=== PATIENT | female | born 1955 | race Caucasian/White ===

== ENCOUNTER → 2018-08-17 | Outpatient (CLI) | payer BC ==
[2018-08-17 13:47] LABS: International Normalized Ratio 1.73; Prothrombin Time Results 17.3 Sec (9.7-11.5)
== END | disposition home or self-care (01) ==
LOC: LAB EV 11:44 → LAB SHORT 11:44
PROVIDERS: Physician Assistant Surgical
DX: D68.59 Other primary thrombophilia (principal)
CPT/HCPCS: 85610

== ENCOUNTER 2018-10-10 10:38 | Inpatient (IN) | payer MEDICARE ==
[~2018-10-10] VITALS: Ht 167.6 cm; Wt 62.5 kg
[2018-10-10 11:13] LABS: BASOPHILS ABSOLUTE AUTO 0.01 K/mm3 (0.00-0.23); BASOPHILS PERCENT AUTO 0 % (0-2); EOSINOPHILS PERCENT AUTO 0 % (0-6); Hematocrit 35.2 % (33.0-51.0); Hemoglobin 11.8 g/dL (11.5-16.0); IMMATURE GRAN ABSOLUTE AUTO 0.02 K/mm3 (0.00-0.10); IMMATURE GRAN PERCENT AUTO 0 % (0-1); LYMPHOCYTES ABSOLUTE AUTO 1.04 K/mm3 (0.84-5.20); LYMPHOCYTES PERCENT AUTO 14 % (21-46); MONOCYTES ABSOLUTE AUTO 0.61 K/mm3 (0.16-1.47); MONOCYTES PERCENT AUTO 8 % (4-13); Mean Corpuscular HGB Conc 33.5 g/dL (31.5-36.5); Mean Corpuscular Volume 90 fL (80-100); Mean Platelet Volume 10.1 fL (9.1-12.4); NEUTROPHILS PERCENT AUTO 78 % (41-73); Platelet Count 104 K/mm3 (150-400); RDW Coefficient Variation 12.8 % (11.7-14.2); RDW Standard Deviation 42.5 fL (35.1-46.3); Red Blood Cell Count 3.93 M/mm3 (3.80-5.20); White Blood Cell Count 7.68 K/mm3 (4.00-11.30)
[2018-10-10] MEDS ORDERED: QUET300 PO (11:25)
[2018-10-10] MEDS ORDERED: Ropinirole HCl4 MG PO (11:25)
[2018-10-10] MEDS ORDERED: WARF5 PO (11:26)
[2018-10-10 11:28] LABS: Influenza A Negative (NEGATIVE); Influenza B Negative (NEGATIVE)
[2018-10-10 11:33] LABS: Albumin, Blood 2.8 g/dL (3.4-5.0); Albumin/Globulin Ratio 0.8 (0.8-1.8); Bilirubin, Total 0.7 mg/dL (0.1-1.0); Bun/Creatinine Ratio 22.7 (12.0-20.0); Creatinine, Blood 1.1 mg/dL (0.40-1.00); Globulin, Blood 3.7 g/dL (2.2-4.0); Total Protein, Blood 6.5 g/dL (6.4-8.2)
[2018-10-10] MEDS ORDERED: **INCOMPLETE MED REC (13:43)
[2018-10-10] MEDS ORDERED: WARF2.5 PO (13:59)
[2018-10-10] MEDS ORDERED: ESCI10 PO (14:00)
[2018-10-10 15:06] LABS: International Normalized Ratio 1.29; Prothrombin Time Results 13.4 Sec (9.7-11.5)
--- NOTE | 2018-10-10 15:20 | NUR ---
ASSUMED CARE: PT NEW ADMIT FROM ED. ARRIVES ON 5L O2 VIA NC, LUNG SOUNDS DIMINISHED IN BASES. HR IN 130S ON CARDIZEM GTT AT 15MG/HR. ALERT AND ORIENTED, COOPERATIVE. NO OTHER NEEDS AT THIS TIME. CALL LIGHT IN REACH
--- NOTE | 2018-10-10 15:50 | NUR ---
CALL TO DR BUSTAMANTE DUE TO PT'S BP IN SYSTOLIC 80S WITH HR IN 120S-130S REQUIRING 15MG/HR OF CARDIZEM. SEE NEW ORDERS.
--- NOTE | 2018-10-10 16:31 | NUR ---
DR BUSTAMANTE CHANGED CARDIZEM TO AMIODORONE BUT INSTRUCTED THIS NURSE TO GIVE LR BOLUS BEFORE SWITCHING TO AMIODORONE. PT'S HR CURRENTLY IN 70S WHILE RECIEVING LR BOLUS. TITRATING CARDIZEM DOWN PER INSTRUCTIONS BY CAR STORER. WILL DISCUSS FURTHER WITH DR BUSTAMANTE IF VITALS CONTINUE SUCH
--- NOTE | 2018-10-10 17:54 | NUR ---
DR BUSTAMANTE AWARE THAT PT'S HR IN 70S-90S WHEN RESTING WITH CARDIZEM OFF. DC'D AMIODORONE. WILL CONTINUE TO MONITOR
--- NOTE | 2018-10-10 19:15 | NUR ---
ASSUME CARE REPORT RECIEVED FROM OFF GOING RN ZA. MONITOR INTACT SHOWING A FLUTTER. HEART RATE 100'S-110'S. CO HEADACHE MEDICATED WITH TYLENOL 650MG PO. NING SOUNDS CLEAR HOWEVER TIGHT. WITH DECREASED SOUNDS IN THE BASES. RESPIRATIONS REGULAR AND EASY AT RESTWITH OCC HASH NON PRODUCTIVE COUGH. ABDOMEN SOFT WITH BOWEL SOUNDS FOUR QUADS.REPOSITIONS SELF IN BED RECIEVING UND PER RT. REMINDED NOT TO GET OUT OF BED BY SELF. STATES "I KNOW" SKIN WARM DRY INTACT NO EDEMA NOTED PEDAL PULSES PRESENT. CONTINUE TO MONITOR AND REPORT CHANGE IN PATIENT CONDITION.
--- NOTE | 2018-10-10 23:13 | NUR ---
HOSP NOTIFIED OF INCREASED HEART RATE OF 140'S ORDERS NOTED CARDIZEM GTT RESTARTED AT 5MG TITRATE TO HEART RATE OF 110-120. CONTINUE TO MONITOR AND REPORT CHANGE IN PATIENT CONDITION
[2018-10-11 04:29] LABS: International Normalized Ratio 2.42; Prothrombin Time Results 23.7 Sec (9.7-11.5)
[2018-10-11 04:45] LABS: Anion Gap 8 mmol/L (6-16); Blood Urea Nitrogen 14 mg/dL (8-24); Bun/Creatinine Ratio 20.8 (12.0-20.0); CO2, Blood 26 mmol/L (21-32); Calcium, Blood 7.9 mg/dL (8.5-10.1); Chloride, Blood 106 mmol/L (98-108); Creatinine, Blood 0.67 mg/dL (0.40-1.00); Glomerular Filtration Rate >60 (60-); Glucose, Blood 226 mg/dL (70-99); Potassium, Blood 4.1 mmol/L (3.5-5.5); Sodium, Blood 140 mmol/L (136-145)
--- NOTE | 2018-10-11 05:31 | NUR ---
TRANSFER NOTE/SHIFT SUMMARY: RESTS QUIETLY WHEN UNDISTURBED. MONITOR INTACT SHOWING A FLUTTER HEART RATE 100'S-120'S. LUNG SOUNDS DECREASED TIGHT. WITH O2 IN PLACE AT 4L/MIN RESPIRATIONS INCREASED WITH ACTIVITY. SPO2 94-97% ABDOMEN SOFT WITH BOWEL SOUNDS FOUR QUADS. REPOSITIONS SELF IN BED. GAIT STEADY TO BSC VOIDS CLEAR YELLOW URINE. BECOMES TACHYPNIC WITH EXCRERTION. SKIN WARM DRY INTACT NO EDEMA NOTED PEDAL PULSES PRESENT CARDIZEM GTT CONTINUES AT 15ML/HR CONTINUE TO MONITOR AND REPORT CHANGE IN PATIENT CONDITION. PENDING TRANSFER AND REPORT TO MATT BETANCOURT AND TX TO PCU 13
--- NOTE | 2018-10-11 06:20 | NUR ---
ASSUMED CARE- PT ARRIVES TO [facility] FROM ICU VIA WHEELCHAIR. PT IS AOX4. VITAL SIGNS STABLE. AMBULATES WITH STANDBY ASSIST TO BED. IV INFUSING LR @ 150/HR AND CARDIZEM @ 15 MG/HR. CURRENT HEART RATE IS IN THE 110'S. O2 SATS OF 96% ON 4L VIA NASAL CANNULA. O2 TITRATED TO 3L AND REMAINS AT 96% AT THIS TIME. PT SETTLED INTO BED AND ORIENTED TO ROOM AND CALL LIGHT SYSTEM. PT ENCOURGED TO CALL FOR ASSISTANCE WITH AMBULATION. WILL CONTINUE TO MONITOR AND REPORT TO ONCOMING SHIFT RN. BED IN LOW POSITION, CALL LIGHT IN REACH.
--- NOTE | 2018-10-11 06:24 | NUR ---
TRANSFER TO PCU 13PER WHEEL CHAIR WITH O2 IN PLACE AT 4L/MIN MIGEL WELL REPORT GIVEN TO MATT BETANCOURT
--- NOTE | 2018-10-11 07:32 | NUR ---
NURSING PCU DAYSHIFT: Assumed care of pt at approx 0700. A/O, pleasant, cooperative w/care. C/O 10/10 pain in back/chest/neck w/cough, denies any pain at rest. Skin is intact w/no breakdown. Ambulates w/o difficulty. Tele in place, aflutter w/HR 100-110, SBP 130's, no c/o cardiac related chest pain/pressure, no noted edema. L/S w/exp wheezes t/o and dim bases, dyspnea w/minimal exertion, O2 sat upper 90's on 3L NC, harsh/dry/CONSTRUCTION CHECKER cough. Abd mildly distended which pt states is normal, BT+, voiding w/o difficulty per pt. PIV x1, diltiazem gtt infusing at 15cc/hr, LR infusing at 150cc/hr. No s/s of acute distress at this time. Pt sitting up in bed drinking decaf coffee. RT at bedside for assessment and tx. Pt denies any current needs or questions regarding plan of care. Awaiting rounding from PMD, cont to monitor for any changes.
--- NOTE | 2018-10-11 10:07 | NUR ---
echocardiogram completed
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
--- NOTE | 2018-10-11 17:08 | NUR ---
NURSING PCU DAYSHIFT SUMMARY: No significant changes noted t/o the shift. VS stable, remains aflutter, heart rate improved to 80-110, diltiazem gtt infusing at 5cc/hr, started on PO metoprolol. Seen by PMD, new d/o received. RT notified of COPD education requirement, scheduled for tomorrow. Pt continues to experience dyspnea w/exertion though O2 sat remains stable. No s/s of acute distress at this time. Call light in reach and pt has been able to use w/o difficulty. Pt denies any questions/needs at this time, cont to monitor until rpt is given to NOC RN.
[2018-10-12 04:39] LABS: International Normalized Ratio 4.91
--- NOTE | 2018-10-12 05:10 | NUR ---
SHIFT SUMMARY PT ALERT AND ORIENTED. VS STABLE. HR SUSTAING IN THE 70'S AND CARDIZEM DC'D. O2 SATS HAVE REMAINED ABOVE 92% ON 4L NC. PT EDUCATED ON BREATHING AND RELAXATION TECHNIQUES. PT DYSPNEIC UPON AMBULATING TO THE BATHROOM AND DESATURATES TO THE LOW 80'S. BSC BROUGHT IN AND PT ABLE TO TRANSFER TO BEDSIDE COMMODE WITH MINIMAL SHORTNESS OF BREATH. LR INF PER EMAR. NO OTHER CHANGES SINCE INITIAL ASSESSMENT. WILL CONTINUE TO MONITOR AND REPORT TO ONCOMING RN. CALL LIGHT IN REACH.
--- NOTE | 2018-10-12 09:00 | NUR ---
NURSING PCU DAYSHIFT: Assumed care of pt at approx 0700. A/O, cooperative w/care, noted anxiety. Able to ambulate independently w/assistance needed only for line management. Denies any pain/discomfort at rest. Skin is fairly intact w/no breakdown noted. Tele in place, afib w/HR 100-115, no c/o CP/pressure, no noted edema. L/S w/fine crackles present in RLL, dyspnea w/minimal exertion, O2 sat low 90's on 5L NC, harsh dry/TELEVISION ANTENNA INSTALLER cough. Abd SNT, BT+, voiding w/o difficulty per pt. LR infusing at 150cc/hr as per d/o. No s/s of acute distress at this time. Pt changed to medical status w/tele, awaiting bed assignment. Pt denies any current needs or questions regarding plan of care. Provided education regarding importance of deep breathing exercises, verbalized understanding. Planning for COPD education today. Cont to monitor for any changes.
--- NOTE | 2018-10-12 09:08 | NUR ---
gIVEN PERMISSION TO WORK WITH THIS PATIENT AT 0900
--- NOTE | 2018-10-12 16:38 | NUR ---
NURSING PCU CARE TRANSFER SUMMARY: No acute changes noted t/o the shift. Pt continues to experience dyspnea w/minimal exertion, O2 sat declines to the low 80's, recovers w/deep breathing exercises, remains on 5L NC. Pt denies any questions/needs at this time. Pt care being xferred to peer RN. Cont to monitor until rpt is given.
--- NOTE | 2018-10-12 17:00 | NUR ---
T.O D'C IV FLUIDS PER
--- NOTE | 2018-10-12 17:14 | NUR ---
NOTIFIED PATIENT CONVERTED FROM A FLUTTER TO SR. STS TRANSFER MED STATIS KEEP TELE FOR TODAY.
[2018-10-12 17:28] LABS: PCO2 Arterial 46.9 mmHg (35-45); PO2 Arterial 57.3 mmHg (80-100); pH Blood Arterial 7.46 (7.35-7.45)
--- NOTE | 2018-10-12 18:38 | NUR ---
PATIENT ALERT AND ORIENTED. IV PATENT. AWARE WE NEED SPUTUM SAMPLE BUT STS NONPRODUCTIVE. PLEASANT. COOPERATIVE. TELE ON AND STILL NSR. STEADY GAIT IN ROOM. BED IN LOW POSITION. CALL LIGHT WITHIN REACH. WILL CONTINUE TO MONITOR.
[2018-10-13 04:31] LABS: Prothrombin Time Results 69.5 Sec (9.7-11.5)
[2018-10-13 04:33] LABS: International Normalized Ratio 7.91
--- NOTE | 2018-10-13 04:58 | NUR ---
SHIFT SUMMARY: PATIENT SLEPT WELL THIS SHIFT, NO ANXIETY NOTED, UP TO BSC X6 WITH NO ASSIST, USING CALL LIGHT APPROPRIATLY. PATIENT INR INCREASED TO 7.9, PHARMACY AND MD GARCÍA MADE AWARE.
--- NOTE | 2018-10-13 18:04 | NUR ---
Report was given to RN accepting the pt to room 209
--- NOTE | 2018-10-13 18:45 | NUR ---
recvd report from previous shift rachel cordova, pt sitting up in bed, a/0 x 4, pleasant/cooperative, respiratory treatment in process, bed rails up x 2, bed in lowest position, call light in reach
--- NOTE | 2018-10-13 19:57 | NUR ---
SHIFT SUMMARY: RECIEVED REPORT FROM OPAL MINER. PT ARRIVED TO ROOM AT 1820 VIA W/C ON 4L O2 NC. DENIES SOB/CP. SHE IS A&OX4. PT REPORTS PLANS FOR HER TO D/C HOME TOMORROW. SHE HAS A STEADY GAIT AND IS INDEPEND IN ROOM. REPORT GIVEN TO NEXT RN.
--- NOTE | 2018-10-14 05:54 | NUR ---
shift summary: vss, no acute changes, pt remained a/0 x 4, pleasant/cooperative. RT performed sleep O2 study this shift. pt appeared to be sleeping peacefully when rounded on after approx 2300, required standby assistance to the bathroom x 1. pt reported no SOB, no difficulty breathing, no n/v, no pain. Urine output >400 ml this shift. no BM this shift.
[2018-10-14 06:04] LABS: International Normalized Ratio 3.2; Prothrombin Time Results 30.5 Sec (9.7-11.5)
[2018-10-14] MEDS ORDERED: ACET325 PO (12:35)
[2018-10-14] MEDS ORDERED: AMOCLA500 PO (12:36)
[2018-10-14] MEDS ORDERED: ALBU3IS INH (12:36)
[2018-10-14] MEDS ORDERED: LIDO700A20 TOP (12:37)
[2018-10-14] MEDS ORDERED: Toprol Xl25 MG PO (12:38)
[2018-10-14] MEDS ORDERED: Prednisone20 MG PO (12:38)
[2018-10-14] MEDS ORDERED: ALBU90OI6 INH (12:39)
[2018-10-14] MEDS ORDERED: Budeprion Sr150 MG PO (12:39)
[2018-10-14] MEDS ORDERED: DULERA 100 MCG/13 GM PO (12:40)
[2018-10-14] MEDS ORDERED: Nicoderm Cq1 EAC1 TD (12:40)
--- NOTE | 2018-10-14 14:08 | NUR ---
DISCHARGE SUMMARY PT A&OX4, VSS, LEFT FLOOR VIA WC WITH RN TO GO HOME WITH ALL PERSONAL POSSESSIONS INCLUDING PORTABLE O2 FROM [facility], TI INSTRUCTIONS VIA CAB, [facility] THEN HOME. DC INSTRUCTIONS PROVIDED. PT REP UNDERSTANDING THOSE INSTRUCTIONS INCLUDING CALLING PCP TO MAKE 2 WK FU REGISTHANK MEET AT HOME WITH SUPPLIES. 2 IVS DC'D.
== END 2018-10-14 14:20 | disposition home or self-care (01) | DRG 871 ==
LOC: ER 10:38 → PCU 13:53 → ICUW 15:02 → PCU 15:10 → SURS 10-13 18:39
PROVIDERS: Emergency Medicine; ADMIT Internal Medicine
DX: A41.9 Sepsis, unspecified organism (principal); J96.01 Acute respiratory failure with hypoxia; J18.9 Pneumonia, unspecified organism; I82.0 Budd-Chiari syndrome; J44.1 Chronic obstructive pulmonary disease with (acute) exacerbation; I48.92 Unspecified atrial flutter; E87.6 Hypokalemia; I48.91 Unspecified atrial fibrillation; R65.20 Severe sepsis without septic shock; F31.9 Bipolar disorder, unspecified; Z66 Do not resuscitate; K21.9 Gastro-esophageal reflux disease without esophagitis; G25.81 Restless legs syndrome; K22.70 Barrett's esophagus without dysplasia; E78.5 Hyperlipidemia, unspecified; F17.210 Nicotine dependence, cigarettes, uncomplicated; Z88.5 Allergy status to narcotic agent; Z79.01 Long term (current) use of anticoagulants; Z79.899 Other long term (current) drug therapy
CPT/HCPCS: 36415; 36600; 71045; 80048; 80053; 82803; 83605; 84443; 84484; 85025; 85610; 87040; 87493; 87804; 93005; 93010; 93306; 94010; 94640; 94664; 94667; 94760; 94761; 94762; 96361; 96365; 96367; 96375; 96376; 97116; 97161; 98960; 99285-25; 99407; J0282; J1956; J2930; J3480; J7030; J7060; J7120

== ENCOUNTER 2019-08-26 18:39 | Emergency (ER) | payer MEDICARE ==
[~2019-08-26] VITALS: Ht 167.6 cm; Wt 61.7 kg
[~2019-08-26 18:39] MED LIST: **INCOMPLETE MED REC; ACET325 PO; ALBU3IS INH; ALBU90OI6 INH; AMOCLA500 PO; Budeprion Sr150 MG PO; DULERA 100 MCG/13 GM PO; ESCI10 PO; LIDO700A20 TOP; Nicoderm Cq1 EAC1 TD; Prednisone20 MG PO; QUET300 PO; Ropinirole HCl4 MG PO; Toprol Xl25 MG PO; WARF2.5 PO; WARF5 PO
[2019-08-26] MEDS ORDERED: ELIQUIS2.5 MG PO (19:00)
== END 2019-08-26 19:48 | disposition home or self-care (01) ==
LOC: ER 18:39
DX: S61.012A Laceration without foreign body of left thumb without damage to nail, initial encounter (principal); F31.9 Bipolar disorder, unspecified; J44.9 Chronic obstructive pulmonary disease, unspecified; K21.9 Gastro-esophageal reflux disease without esophagitis; E78.5 Hyperlipidemia, unspecified; Z88.5 Allergy status to narcotic agent; Z79.899 Other long term (current) drug therapy; Z79.01 Long term (current) use of anticoagulants; W26.0XXA Contact with knife, initial encounter
CPT/HCPCS: 12001; 99282-25

== ENCOUNTER 2019-09-05 12:44 | Emergency (ER) | payer MEDICARE ==
[~2019-09-05] VITALS: Ht 167.6 cm; Wt 59.9 kg
[~2019-09-05 12:44] MED LIST changes: +ELIQUIS2.5 MG PO
== END 2019-09-05 13:21 | disposition home or self-care (01) ==
LOC: ER 12:44
DX: S61.012D Laceration without foreign body of left thumb without damage to nail, subsequent encounter (principal); F31.9 Bipolar disorder, unspecified; K21.9 Gastro-esophageal reflux disease without esophagitis; E78.5 Hyperlipidemia, unspecified; F17.210 Nicotine dependence, cigarettes, uncomplicated; Z88.5 Allergy status to narcotic agent; Z79.899 Other long term (current) drug therapy; Z79.01 Long term (current) use of anticoagulants

== ENCOUNTER → 2020-07-01 | Outpatient (CLI) | payer MEDICARE ==
[2020-07-03 08:09] LABS: HPV 16 Negative (Negative); HPV 18 Negative (Negative); HPV OTHER HR TYPES Positive (Negative)
== END | disposition home or self-care (01) ==
LOC: LAB SHORT 10:30 → LAB 10:30
PROVIDERS: Nurse Practitioner Family
DX: Z12.4 Encounter for screening for malignant neoplasm of cervix (principal); Z11.51 Encounter for screening for human papillomavirus (HPV)
CPT/HCPCS: 87624; 87625; G0123

== ENCOUNTER 2021-02-17 02:40 | Emergency (ER) | payer MEDICARE ==
[~2021-02-17] VITALS: Ht 167.6 cm; Wt 59.0 kg
[2021-03-20] MEDS ORDERED: ALBU2.5V5 INH (12:57)
[2021-03-20] MEDS ORDERED: ACET500 PO (12:57)
[2021-03-20] MEDS ORDERED: BUPR150ER PO (12:58)
[2021-03-20] MEDS ORDERED: BUDESONIDE-FO10.2 G3 INH (12:58)
[2021-03-20] MEDS ORDERED: ELIQUIS5 M2 PO (12:58)
[2021-03-20] MEDS ORDERED: ALBU90OI INH (12:58)
[2021-03-20] MEDS ORDERED: QUETIAPINE FUM400 M2 PO (12:59)
[2021-03-20] MEDS ORDERED: TOPROL XL25 MG PO (12:59)
[2021-03-20] MEDS ORDERED: IPRAT-ALBUT 0.5-3 ML INH (12:59)
[2021-03-20] MEDS ORDERED: QUET100 PO (12:59)
[2021-03-20] MEDS ORDERED: ROPINIROLE HCL4 M2 PO (13:00)
== END 2021-02-17 06:15 | disposition home or self-care (01) ==
LOC: ER 02:40
DX: S81.011A Laceration without foreign body, right knee, initial encounter (principal); S50.12XA Contusion of left forearm, initial encounter; J44.9 Chronic obstructive pulmonary disease, unspecified; Z79.01 Long term (current) use of anticoagulants; Z79.899 Other long term (current) drug therapy; Z88.5 Allergy status to narcotic agent; W45.8XXA Other foreign body or object entering through skin, initial encounter
CPT/HCPCS: 12001; 99282-25

== ENCOUNTER → 2021-08-18 | Outpatient (CLI) | payer MEDICARE ==
[~2021-08-18] MED LIST changes: +ACET500 PO; +ALBU2.5V5 INH; +ALBU90OI INH; +BUDESONIDE-FO10.2 G3 INH; +BUPR150ER PO; +ELIQUIS5 M2 PO; +IPRAT-ALBUT 0.5-3 ML INH; +QUET100 PO; +QUETIAPINE FUM400 M2 PO; +ROPINIROLE HCL4 M2 PO; +TOPROL XL25 MG PO
[2021-08-21 14:11] LABS: HPV 16 Positive (Negative); HPV 18 Negative (Negative); HPV OTHER HR TYPES Negative (Negative)
== END | disposition home or self-care (01) ==
LOC: PLD 13:05 → LAB SHORT 13:05
PROVIDERS: Nurse Practitioner Family
DX: Z01.419 Encounter for gynecological examination (general) (routine) without abnormal findings (principal)
CPT/HCPCS: 87624; G0145

== ENCOUNTER 2023-03-06 14:13 | Emergency (ER) | payer OTHER, MEDICARE ==
[~2023-03-06] VITALS: Ht 167.6 cm; Wt 54.0 kg
[2023-03-06 14:19] VITALS: BP 138/96
== END 2023-03-06 14:40 | disposition home or self-care (01) ==
LOC: ER 14:13
DX: S81.812A Laceration without foreign body, left lower leg, initial encounter (principal); Z23 Encounter for immunization; W45.8XXA Other foreign body or object entering through skin, initial encounter; Y92.810 Car as the place of occurrence of the external cause; Z88.5 Allergy status to narcotic agent; Z79.51 Long term (current) use of inhaled steroids; Z79.01 Long term (current) use of anticoagulants; Z79.899 Other long term (current) drug therapy; J44.9 Chronic obstructive pulmonary disease, unspecified; K21.9 Gastro-esophageal reflux disease without esophagitis; E78.5 Hyperlipidemia, unspecified; F17.210 Nicotine dependence, cigarettes, uncomplicated
CPT/HCPCS: 90471; 90714; 99282

== ENCOUNTER → 2023-03-10 | Outpatient (CLI) | payer MEDICARE | END | disposition home or self-care (01) | LOC: PLD 13:10 → LAB SHORT 13:10 | DX: N71.9 Inflammatory disease of uterus, unspecified (principal); N95.0 Postmenopausal bleeding | CPT/HCPCS: 88305 ==

== ENCOUNTER 2025-03-25 12:11 | Emergency (ER) | payer MEDICARE ==
[~2025-03-25] VITALS: Ht 167.6 cm; Wt 49.9 kg
[2025-03-25 12:17] VITALS: BP 131/89
== END 2025-03-25 14:59 | disposition home or self-care (01) ==
LOC: ER 12:11
DX: I11.0 Hypertensive heart disease with heart failure (principal); I50.9 Heart failure, unspecified; J44.9 Chronic obstructive pulmonary disease, unspecified; K21.9 Gastro-esophageal reflux disease without esophagitis; E78.5 Hyperlipidemia, unspecified; K74.60 Unspecified cirrhosis of liver; F17.210 Nicotine dependence, cigarettes, uncomplicated; R09.89 Other specified symptoms and signs involving the circulatory and respiratory systems; Z88.5 Allergy status to narcotic agent; Z79.01 Long term (current) use of anticoagulants; Z79.899 Other long term (current) drug therapy
CPT/HCPCS: 71046; 80053; 83880; 84484; 85025; 99284-25

== ENCOUNTER → 2025-03-25 | Outpatient (CLI) | payer MEDICARE ==
[2025-03-25 10:17] LABS: BASOPHILS ABSOLUTE AUTO 0.06 K/mm3 (0.00-0.23); BASOPHILS PERCENT AUTO 1 % (0-2); EOSINOPHILS ABSOLUTE AUTO 0.70 K/mm3 (0.00-0.68); EOSINOPHILS PERCENT AUTO 8 % (0-6); Hematocrit 45.8 % (33.0-51.0); Hemoglobin 13.4 g/dL (11.5-16.0); IMMATURE GRAN ABSOLUTE AUTO 0.03 K/mm3 (0.00-0.10); IMMATURE GRAN PERCENT AUTO 0 % (0-1); LYMPHOCYTES ABSOLUTE AUTO 1.71 K/mm3 (0.84-5.20); LYMPHOCYTES PERCENT AUTO 19 % (21-46); MONOCYTES ABSOLUTE AUTO 0.88 K/mm3 (0.16-1.47); MONOCYTES PERCENT AUTO 10 % (4-13); Mean Corpuscular HGB Conc 29.3 g/dL (31.5-36.5); Mean Corpuscular Volume 86 fL (80-100); NEUTROPHILS ABSOLUTE AUTO 5.51 K/mm3 (1.96-9.15); NEUTROPHILS PERCENT AUTO 62 % (41-73); NRBC ABSOLUTE 0.00 K/mm3 (0.00-0.02); NRBC Auto 0.0 /100 WBC (0.0-0.2); Platelet Count 236 K/mm3 (150-400); RDW Coefficient Variation 17.2 % (11.7-14.2); RDW Standard Deviation 53.3 fL (35.1-46.3)
[2025-03-25 10:28] LABS: Alanine Aminotransfer (ALT/SGP 68.0 U/L (12-78); Albumin, Blood 3.5 g/dL (3.4-5.0); Albumin/Globulin Ratio 1.0 (0.8-1.8); Anion Gap 9.0 mmol/L (3-11); Aspartate Aminotrans (AST/SGOT 43.0 U/L (12-37); Bilirubin, Total 1.0 mg/dL (0.1-1.0); Blood Urea Nitrogen 39.0 mg/dL (8-24); CO2, Blood 37.0 mmol/L (21-32); Calcium, Blood 9.6 mg/dL (8.5-10.1); Chloride, Blood 100.0 mmol/L (98-108); Creatinine, Blood 1.27 mg/dL (0.40-1.00); Globulin, Blood 3.6 g/dL (2.2-4.0); Glucose, Blood 123.0 mg/dL (70-99); Potassium, Blood 4.8 mmol/L (3.5-5.5); Sodium, Blood 141.0 mmol/L (136-145); Total Protein, Blood 7.1 g/dL (6.4-8.2)
== END ==
LOC: LAB SHORT 10:08 → LAB 10:08
PROVIDERS: Family Medicine
DX: R09.89 Other specified symptoms and signs involving the circulatory and respiratory systems (principal); I50.9 Heart failure, unspecified
CPT/HCPCS: 80053; 83880; 84484; 85025

== ENCOUNTER 2025-04-03 22:07 | Emergency (ER) | payer MEDICARE ==
[~2025-04-03] VITALS: Ht 167.6 cm; Wt 51.7 kg
[2025-04-03 22:28] LABS: BASOPHILS ABSOLUTE AUTO 0.05 K/mm3 (0.00-0.23); BASOPHILS PERCENT AUTO 1 % (0-2); EOSINOPHILS ABSOLUTE AUTO 0.50 K/mm3 (0.00-0.68); EOSINOPHILS PERCENT AUTO 6 % (0-6); Hematocrit 38.3 % (33.0-51.0); Hemoglobin 11.4 g/dL (11.5-16.0); IMMATURE GRAN ABSOLUTE AUTO 0.02 K/mm3 (0.00-0.10); IMMATURE GRAN PERCENT AUTO 0 % (0-1); LYMPHOCYTES ABSOLUTE AUTO 1.87 K/mm3 (0.84-5.20); LYMPHOCYTES PERCENT AUTO 24 % (21-46); MONOCYTES ABSOLUTE AUTO 1.03 K/mm3 (0.16-1.47); MONOCYTES PERCENT AUTO 13 % (4-13); Mean Corpuscular HGB Conc 29.8 g/dL (31.5-36.5); Mean Corpuscular Volume 85 fL (80-100); NEUTROPHILS ABSOLUTE AUTO 4.40 K/mm3 (1.96-9.15); NEUTROPHILS PERCENT AUTO 56 % (41-73); NRBC ABSOLUTE 0.00 K/mm3 (0.00-0.02); NRBC Auto 0.0 /100 WBC (0.0-0.2); Platelet Count 234 K/mm3 (150-400); RDW Coefficient Variation 17.1 % (11.7-14.2); RDW Standard Deviation 52.6 fL (35.1-46.3)
[2025-04-03 23:04] LABS: Alanine Aminotransfer (ALT/SGP 41.0 U/L (12-78); Albumin, Blood 2.7 g/dL (3.4-5.0); Albumin/Globulin Ratio 0.8 (0.8-1.8); Anion Gap 7.0 mmol/L (3-11); Aspartate Aminotrans (AST/SGOT 44.0 U/L (12-37); Bilirubin, Total 0.6 mg/dL (0.1-1.0); Blood Urea Nitrogen 55.0 mg/dL (8-24); CO2, Blood 30.0 mmol/L (21-32); Calcium, Blood 9.6 mg/dL (8.5-10.1); Chloride, Blood 104.0 mmol/L (98-108); Creatinine, Blood 1.95 mg/dL (0.40-1.00); Globulin, Blood 3.3 g/dL (2.2-4.0); Glucose, Blood 79.0 mg/dL (70-99); Potassium, Blood 5.0 mmol/L (3.5-5.5); Sodium, Blood 136.0 mmol/L (136-145); Total Protein, Blood 6.0 g/dL (6.4-8.2)
[2025-04-04 00:45] VITALS: BP 125/77
== END 2025-04-04 08:08 | disposition home or self-care (01) ==
LOC: ER 22:07
PROVIDERS: Emergency Medicine
DX: R53.1 Weakness (principal); I89.0 Lymphedema, not elsewhere classified; R00.2 Palpitations; J44.9 Chronic obstructive pulmonary disease, unspecified; K21.9 Gastro-esophageal reflux disease without esophagitis; F31.9 Bipolar disorder, unspecified; F17.210 Nicotine dependence, cigarettes, uncomplicated; Z88.5 Allergy status to narcotic agent; Z79.01 Long term (current) use of anticoagulants; Z79.899 Other long term (current) drug therapy
CPT/HCPCS: 71046; 80053; 83880; 84484; 85025; 93005; 93010; 99285-25

== ENCOUNTER 2025-04-06 21:45 | Inpatient (IN) | payer MEDICARE ==
[~2025-04-06] VITALS: Ht 167.6 cm; Wt 53.9 kg
[2025-04-06] MEDS ORDERED: NS 1,000 ML IV SCH (22:15)
[2025-04-06 22:46] LABS: BASOPHILS ABSOLUTE AUTO 0.04 K/mm3 (0.00-0.23); BASOPHILS PERCENT AUTO 1 % (0-2); EOSINOPHILS ABSOLUTE AUTO 0.32 K/mm3 (0.00-0.68); EOSINOPHILS PERCENT AUTO 4 % (0-6); Hematocrit 35.8 % (33.0-51.0); Hemoglobin 10.5 g/dL (11.5-16.0); IMMATURE GRAN ABSOLUTE AUTO 0.02 K/mm3 (0.00-0.10); IMMATURE GRAN PERCENT AUTO 0 % (0-1); LYMPHOCYTES ABSOLUTE AUTO 1.40 K/mm3 (0.84-5.20); LYMPHOCYTES PERCENT AUTO 19 % (21-46); MONOCYTES ABSOLUTE AUTO 0.69 K/mm3 (0.16-1.47); MONOCYTES PERCENT AUTO 10 % (4-13); Mean Corpuscular HGB Conc 29.3 g/dL (31.5-36.5); Mean Corpuscular Volume 84 fL (80-100); NEUTROPHILS ABSOLUTE AUTO 4.76 K/mm3 (1.96-9.15); NEUTROPHILS PERCENT AUTO 66 % (41-73); NRBC ABSOLUTE 0.00 K/mm3 (0.00-0.02); NRBC Auto 0.0 /100 WBC (0.0-0.2); Platelet Count 208 K/mm3 (150-400); RDW Coefficient Variation 17.0 % (11.7-14.2); RDW Standard Deviation 52.4 fL (35.1-46.3)
[2025-04-06 23:08] LABS: Alanine Aminotransfer (ALT/SGP 38.0 U/L (12-78); Albumin, Blood 2.7 g/dL (3.4-5.0); Albumin/Globulin Ratio 0.9 (0.8-1.8); Anion Gap 5.0 mmol/L (3-11); Aspartate Aminotrans (AST/SGOT 25.0 U/L (12-37); Bilirubin, Total 0.4 mg/dL (0.1-1.0); Blood Urea Nitrogen 63.0 mg/dL (8-24); CO2, Blood 35.0 mmol/L (21-32); Calcium, Blood 8.2 mg/dL (8.5-10.1); Chloride, Blood 102.0 mmol/L (98-108); Creatinine, Blood 1.89 mg/dL (0.40-1.00); Globulin, Blood 3.0 g/dL (2.2-4.0); Glucose, Blood 105.0 mg/dL (70-99); Potassium, Blood 5.2 mmol/L (3.5-5.5); Sodium, Blood 137.0 mmol/L (136-145); Total Protein, Blood 5.7 g/dL (6.4-8.2)
[2025-04-07] VITALS (8 sets, daily range): BP systolic 94–129; BP diastolic 63–78
[2025-04-07 00:43] LABS: pH Blood Venous 7.35 (7.34-7.37)
[2025-04-07] MEDS ORDERED: NS 1,000 ML IV SCH (01:00)
[2025-04-07] MEDS ORDERED: Ipratropium/Albuterol SulF 2.5-0.5MG/3 ML Amp INH SCH (01:50)
[2025-04-07] MEDS ORDERED: Albuterol 2.5 MG/3 ML VIAL INH SCH (01:50)
[2025-04-07] MEDS ORDERED: MIRT15 PO (02:07)
[2025-04-07] MEDS ORDERED: POTA10T PO (02:07)
[2025-04-07] MEDS ORDERED: SOAANZ20 M2 PO (02:08)
[2025-04-07] MEDS ORDERED: MONT10T PO (02:09)
[2025-04-07 02:32] LABS: BASOPHILS ABSOLUTE AUTO 0.01 K/mm3 (0.00-0.23); BASOPHILS PERCENT AUTO 0 % (0-2); EOSINOPHILS ABSOLUTE AUTO 0.06 K/mm3 (0.00-0.68); EOSINOPHILS PERCENT AUTO 1 % (0-6); Hematocrit 39.3 % (33.0-51.0); Hemoglobin 11.4 g/dL (11.5-16.0); IMMATURE GRAN ABSOLUTE AUTO 0.02 K/mm3 (0.00-0.10); IMMATURE GRAN PERCENT AUTO 0 % (0-1); LYMPHOCYTES ABSOLUTE AUTO 0.70 K/mm3 (0.84-5.20); LYMPHOCYTES PERCENT AUTO 9 % (21-46); MONOCYTES ABSOLUTE AUTO 0.13 K/mm3 (0.16-1.47); MONOCYTES PERCENT AUTO 2 % (4-13); Mean Corpuscular HGB Conc 29.0 g/dL (31.5-36.5); Mean Corpuscular Volume 85 fL (80-100); NEUTROPHILS ABSOLUTE AUTO 6.49 K/mm3 (1.96-9.15); NEUTROPHILS PERCENT AUTO 88 % (41-73); NRBC ABSOLUTE 0.00 K/mm3 (0.00-0.02); NRBC Auto 0.0 /100 WBC (0.0-0.2); Platelet Count 220 K/mm3 (150-400); RDW Coefficient Variation 17.2 % (11.7-14.2); RDW Standard Deviation 52.6 fL (35.1-46.3)
--- NOTE | 2025-04-07 02:48 | NUR ---
PT ARRIVED TO RM 343 FROM ED AT 0152 VIA GURNEY. PT MOVED TO [facility] WITH A STANDBY ASSIST. PT SOB AND SATS WERE IN MID TO HIGH 80'S. PT PLACED ON 1L O2 VIA [place], SATS UP TO 96. PT STANDBY ASSIST TO BEDSIDE COMMODE WITH A URINE OUTPUT OF 100ML. I WILL UPDATE PRIMARY RN WHEN SHE RETURNS.
[2025-04-07] MEDS ORDERED: Albuterol Soln 2.5 MG/0.5 ML UD INH PRN (02:55)
[2025-04-07 03:02] LABS: Ferritin, Serum 19.0 ng/mL (8-252); Total Iron Binding Capacity 518.0 ug/dL (250-450)
[2025-04-07] MEDS ORDERED: Albuterol HFA200 ACT/6.7 GM INH INH PRN (03:25)
[2025-04-07 04:30] LABS: Alanine Aminotransfer (ALT/SGP 43.0 U/L (12-78); Albumin, Blood 2.8 g/dL (3.4-5.0); Albumin/Globulin Ratio 0.8 (0.8-1.8); Anion Gap 10.0 mmol/L (3-11); Aspartate Aminotrans (AST/SGOT 36.0 U/L (12-37); Bilirubin, Total 0.6 mg/dL (0.1-1.0); Blood Urea Nitrogen 61.0 mg/dL (8-24); CO2, Blood 30.0 mmol/L (21-32); Calcium, Blood 8.2 mg/dL (8.5-10.1); Chloride, Blood 102.0 mmol/L (98-108); Creatinine, Blood 1.87 mg/dL (0.40-1.00); Globulin, Blood 3.3 g/dL (2.2-4.0); Glucose, Blood 150.0 mg/dL (70-99); Potassium, Blood 5.8 mmol/L (3.5-5.5); Sodium, Blood 136.0 mmol/L (136-145); Total Protein, Blood 6.1 g/dL (6.4-8.2)
--- NOTE | 2025-04-07 05:09 | NUR ---
SHORTNESS OF BREATH. PT REPORTED EXPERIENCING SHORTNESS OF BREATH AT REST. RT NOTIFIED AND REQUESTED BREATHING TREATMENT FOR PT. RT STATED PT NEEDS TO BE ON MEDICATION FOR "DIURESIS" TO HELP BREATHING. PT GIVEN BREATHING TREATMENT BY RT. RT REQUESTED THIS RN TO CLARIFY WITH DOCTOR ABOUT DIURESIS. PT HAS BEEN HYPOTENSIVE AND RECEIVING FLUIDS. AFTER TREATMENT, PT REPORTED IMPROVEMENT OF SOB. CALL PLACED TO HOSPITALIST. NOTIFIED OF THE ABOVE AND SX OF SOB, WITH IMPROVEMENT POST TREATMENT. NO NEW ORDERS RECEIVED AND INSTRUCTED TO CONTINUE FLUIDS ORDERED.
--- NOTE | 2025-04-07 05:46 | NUR ---
SHIFT SUMMARY NOC. PT ADMIT FOR HYPOTENSION, PT A/O X4. PT VOIDING URINE, SBA-1 ASSIST TO BSC. SCDS IN PLACE TO BLE. PT ON TELEMETRY WITH NO REPORTED EVENTS. PT ON O2 VIA N/C. PT HAD PRN BREATHING TREATMENT WITH REPORTED RELIEF. PT RESTED WITH CALL LIGHT IN REACH.
[2025-04-07] MEDS ORDERED: Heparin Sodium,Porcine 5,000 UNIT/0.5 ML SDV SC SCH (09:00)
[2025-04-08 03:00] VITALS: BP 127/82
[2025-04-08 05:42] LABS: BASOPHILS ABSOLUTE AUTO 0.01 K/mm3 (0.00-0.23); BASOPHILS PERCENT AUTO 0 % (0-2); EOSINOPHILS ABSOLUTE AUTO 0.03 K/mm3 (0.00-0.68); EOSINOPHILS PERCENT AUTO 0 % (0-6); Hematocrit 37.4 % (33.0-51.0); Hemoglobin 11.0 g/dL (11.5-16.0); IMMATURE GRAN ABSOLUTE AUTO 0.05 K/mm3 (0.00-0.10); IMMATURE GRAN PERCENT AUTO 0 % (0-1); LYMPHOCYTES ABSOLUTE AUTO 1.40 K/mm3 (0.84-5.20); LYMPHOCYTES PERCENT AUTO 11 % (21-46); MONOCYTES ABSOLUTE AUTO 1.15 K/mm3 (0.16-1.47); MONOCYTES PERCENT AUTO 9 % (4-13); Mean Corpuscular HGB Conc 29.4 g/dL (31.5-36.5); Mean Corpuscular Volume 84 fL (80-100); NEUTROPHILS ABSOLUTE AUTO 10.40 K/mm3 (1.96-9.15); NEUTROPHILS PERCENT AUTO 80 % (41-73); NRBC ABSOLUTE 0.02 K/mm3 (0.00-0.02); NRBC Auto 0.2 /100 WBC (0.0-0.2); Platelet Count 261 K/mm3 (150-400); RDW Coefficient Variation 17.2 % (11.7-14.2); RDW Standard Deviation 52.1 fL (35.1-46.3)
[2025-04-08 06:13] LABS: Anion Gap 6.0 mmol/L (3-11); Blood Urea Nitrogen 59.0 mg/dL (8-24); CO2, Blood 34.0 mmol/L (21-32); Calcium, Blood 8.5 mg/dL (8.5-10.1); Chloride, Blood 102.0 mmol/L (98-108); Creatinine, Blood 1.4 mg/dL (0.40-1.00); Glucose, Blood 140.0 mg/dL (70-99); Potassium, Blood 4.7 mmol/L (3.5-5.5); Sodium, Blood 137.0 mmol/L (136-145)
--- NOTE | 2025-04-08 06:42 | NUR ---
Shift Summary AOx4, high anxiety noted. Slept off/on throughout the night. Patient did not have any bm's this shift but did have multiple clear yellow urine. Patient noted to have normotensive bp's to R arm but hypotensive/soft bp's to L arm. Pleasant, a little forgetful, but highly anxious. Appetite is good and has been requesting chocolate ensure, milk on ice, and ct crackers. Independent to bedside commode. Patient is stressed about not being heard by her tobacco stripper who prescribed the diuretics to help remove some fluids. Patient believes the diuretic meds are reacting with her liver in a negative way. Spiritual Consult placed d/t spiritual distress. Daughter lives in another state. Patient placed on iso to r/o c-diff from multiple diarrhea during day shift. SCD's on. Tele: SR [id number].
[2025-04-08 07:55] VITALS: BP 104/82
[2025-04-08 11:31] VITALS: BP 125/74
[2025-04-08] MEDS ORDERED: Flonase 0.05% N16 GM (12:01)
[2025-04-08 15:30] VITALS: BP 119/77
[2025-04-08 16:15] VITALS: BP 112/72
[2025-04-08] MEDS ORDERED: Furosemide 10 MG / ML 2ML Vial IV ONE (17:00)
--- NOTE | 2025-04-08 17:57 | NUR ---
DAY SUMMARY A&OX4, VSS, ONE C/O CP THIS SHIFT (1624)-NO CHANGES ON TELE ([id number]), REPORTS SHE FEELS "PRESSURE FROM ABD", PLACED ON 2L O2, PAIN RESOLVED W/IN ABOUT 20 MINS. NOTIFIED PROVIDER, NEW ORDERS REC (LASIX & STRICT I'S AND O'S), PT DENIES CP AT THIS TIME, IS DANGLING AT BEDSIDE EATING DINNER AT THIS TIME, CALL LIGHT IN REACH, WILL CONT TO MONITOR UNTIL REPORT GIVEN TO ONCOMING NURSE.
[2025-04-08 19:25] VITALS: BP 109/69
[2025-04-09] VITALS (11 sets, daily range): BP systolic 68–140; BP diastolic 54–109
[2025-04-09 06:04] LABS: BASOPHILS ABSOLUTE AUTO 0.06 K/mm3 (0.00-0.23); BASOPHILS PERCENT AUTO 1 % (0-2); EOSINOPHILS ABSOLUTE AUTO 0.42 K/mm3 (0.00-0.68); EOSINOPHILS PERCENT AUTO 4 % (0-6); Hematocrit 38.1 % (33.0-51.0); Hemoglobin 11.1 g/dL (11.5-16.0); IMMATURE GRAN ABSOLUTE AUTO 0.03 K/mm3 (0.00-0.10); IMMATURE GRAN PERCENT AUTO 0 % (0-1); LYMPHOCYTES ABSOLUTE AUTO 1.82 K/mm3 (0.84-5.20); LYMPHOCYTES PERCENT AUTO 16 % (21-46); MONOCYTES ABSOLUTE AUTO 1.47 K/mm3 (0.16-1.47); MONOCYTES PERCENT AUTO 13 % (4-13); Mean Corpuscular HGB Conc 29.1 g/dL (31.5-36.5); Mean Corpuscular Volume 85 fL (80-100); NEUTROPHILS ABSOLUTE AUTO 7.33 K/mm3 (1.96-9.15); NEUTROPHILS PERCENT AUTO 66 % (41-73); NRBC ABSOLUTE 0.00 K/mm3 (0.00-0.02); NRBC Auto 0.0 /100 WBC (0.0-0.2); Platelet Count 216 K/mm3 (150-400); RDW Coefficient Variation 17.2 % (11.7-14.2); RDW Standard Deviation 53.0 fL (35.1-46.3)
--- NOTE | 2025-04-09 06:07 | NUR ---
SHIFT SUMMARY PATIENT IS ALERT AND ORIENTED. PATIENT HAS HAD NO ACUTE EVENTS THIS SHIFT. VITAL SIGNS REVIEWED. PATIENT HAS HAD NO COMPLAINTS OF SOB, NAUSEA, VOMITTING OR PAIN THIS SHIFT. PATIENT HAS BEEN ON 2L NC THIS SHIFT FOR COMFORT. PATIENT HAS BEEN IND TO BSC THIS SHIFT. BED IN LOCKED AND LOWEST POSITION. CALL LIGHT IN PLACE.
[2025-04-09 06:36] LABS: Alanine Aminotransfer (ALT/SGP 35.0 U/L (12-78); Albumin, Blood 2.6 g/dL (3.4-5.0); Albumin/Globulin Ratio 0.9 (0.8-1.8); Anion Gap 4.0 mmol/L (3-11); Aspartate Aminotrans (AST/SGOT 26.0 U/L (12-37); Bilirubin, Total 0.6 mg/dL (0.1-1.0); Blood Urea Nitrogen 48.0 mg/dL (8-24); CO2, Blood 36.0 mmol/L (21-32); Calcium, Blood 8.3 mg/dL (8.5-10.1); Chloride, Blood 104.0 mmol/L (98-108); Creatinine, Blood 0.85 mg/dL (0.40-1.00); Globulin, Blood 3.0 g/dL (2.2-4.0); Glucose, Blood 68.0 mg/dL (70-99); Potassium, Blood 3.8 mmol/L (3.5-5.5); Sodium, Blood 140.0 mmol/L (136-145); Total Protein, Blood 5.6 g/dL (6.4-8.2)
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
--- NOTE | 2025-04-09 17:30 | NUR ---
NOTE PT AWAKE AND ALERT. TALKED WITH PT SISTER/POA. PT BLE EDEAM STABLE. ABD ROUND, FIRM. LETS DARK RED/PURPLE WHEN DEPENDNET. PT HAS TAKEDN HER SCD SLEAVES AND PLACED THEM AROUND HER THIGHS. SHE REFUSES TO PUT THEM ON HER CALVES. VSS. VOIDING. CARE ONGOING.
[2025-04-09] MEDS ORDERED: HYDROmorphone HCl/Pf 1MG SYR IV STA (22:29)
[2025-04-09 22:55] LABS: Magnesium, Blood 1.7 mg/dL (1.6-2.4)
[2025-04-09 22:56] LABS: Alanine Aminotransfer (ALT/SGP 39.0 U/L (12-78); Albumin, Blood 2.8 g/dL (3.4-5.0); Albumin/Globulin Ratio 0.8 (0.8-1.8); Anion Gap 5.0 mmol/L (3-11); Aspartate Aminotrans (AST/SGOT 32.0 U/L (12-37); Bilirubin, Total 0.6 mg/dL (0.1-1.0); Blood Urea Nitrogen 40.0 mg/dL (8-24); CO2, Blood 39.0 mmol/L (21-32); Calcium, Blood 8.3 mg/dL (8.5-10.1); Chloride, Blood 101.0 mmol/L (98-108); Creatinine, Blood 0.99 mg/dL (0.40-1.00); Globulin, Blood 3.6 g/dL (2.2-4.0); Glucose, Blood 104.0 mg/dL (70-99); Potassium, Blood 4.6 mmol/L (3.5-5.5); Sodium, Blood 140.0 mmol/L (136-145); Total Protein, Blood 6.4 g/dL (6.4-8.2)
[2025-04-09] MEDS ORDERED: HYDROmorphone HCl/Pf 1MG SYR IV PRN (23:00)
[2025-04-09] MEDS ORDERED: Amiodarone HCl 150 MG in NS 100 ML IV ONE (23:30)
--- NOTE | 2025-04-09 23:40 | NUR ---
WAS CALLED TO ROOM 343 SECONDARY TO PT HAVING UP TO BATHROOM TO VOID HEART RATE INCREASED TO 200 + PT CURRENTLY BACK IN BED. ASKED PRIMARY NURSE TO CALL HOSPITALIST - DR LARA WHO COMES TO ROOM. EKG DONE. PT COMPLAINS OF CHEST PAIN AND IS MEDICATED WITH [address] LARA. PT STATES THAT THIS WAS VERY AFFECTIVE. EKG REVEALS PROBABLE A-FLUTTER. SECONDARY EKG PERFORMED WITH DR LARA SHOWN. CHEST X RAY DONE. MD REQUESTS PT TO BE TRANSFERRED TO PCU. CHARGE NURSE AND ACCEPTING RN FROM PCU COMES TO ROOM TO ASSIST. DID CALL ICU CHARGE NURSE TO COME TO ROOM WELL TO INCREASE CRITICAL NURSE ASSESSMENT. PT'S BLOOD PRESSURES HYPOTENSIVE WITH SYSTOLIC IN 70'S. PT DOES NOT ENDORSE DIZZYNESS. PER DR LARA, 300 ML BOLUS INITIATED. ASIA KELLY FROM PCU STARTS ADDITIONAL 18 GAUGE IN R AC TO HAVE BETTER ACCESS FOR BOLUS. PT'S BLOOD PRESSURES REMAIN LOW. DECISION MADE TO TRANSFER PT TO ICU INSTEAD. PRIMARY RN NIKI PROACTIVE IN ASSESSMENTS AND TREATMENTS. ACCOMPANIES PT TO ICU.
[2025-04-09] MEDS ORDERED: Amiodarone HCl 450 MG in NS 250 ML IV SCH (23:50)
[2025-04-10] VITALS (24 sets, daily range): BP systolic 16–163; BP diastolic 57–85
--- NOTE | 2025-04-10 00:01 | NUR ---
SHIFT SUMMARY CALLED TO PT ROOM D/T PT HEART RATE JUMPED TO 210'S. EYES ON PT, SHE HAD BEEN UP TO BATHROOM AND HAD BENT DOWN TO TURN OFF SCD ALARM. THEN FELT HEART RACING PER PT. CONTACTED ARCHITECTURAL TECHNICIAN THOMAS. CHECKED VITALS, PT HAD SBP IN 70'S. HOSPITALIST CALLED. DR. LARA IN ROOM AT BEDSIDE. STAT EKG, CHEST XRAY, LABS, AND PAIN MEDICATION ORDERED. EKG SHOWED POSSIBLE AFLUTTER. PT TO BE TRANSFERRED TO PCU. VISUAL COORDINATORASIA PRIETO AND PCU CHARGE JOSEPH AT BEDSIDE. ASIA PRIETO INSERTED 18G IV INTO RAC FOR FLUID BOLUS. ARCHITECTURAL TECHNICIAN THOMAS CALLED ICU ARCHITECTURAL TECHNICIAN CARLA FOR FURTHER EVALUATION. PT HAD 1MG DILAUDED AND 300ML NS BOLUS, WITH NO IMPROVEMENT TO BP. DURING BEDSIDE EVALUATION, PT HEART RATE CONTINUING TO SPIKE INTO 180'S +. ICU ARCHITECTURAL TECHNICIAN DETERMINED PT NEEDED TO BE TRANSFERRED TO ICU. PT ESCORTED TO ICU BY ICU ARCHITECTURAL TECHNICIAN AND THIS RN.
[2025-04-10] MEDS ORDERED: Furosemide 10 MG / ML 2ML Vial IV SCH (01:00)
--- NOTE | 2025-04-10 01:12 | NUR ---
TRANSITION OF CARE Received pt to unit approximately 2315. Bedside report w/ nurse transferring care. Pt drowsy but arousable and oriented, Irregular HR ranging from 170s-200, pt denies pain, endorses shortness of breath. Wet, coarse crackles throughout. MD made aware of pts arrival and arrived to bedside with new orders per eMAR. Distended bladder noted, hurley placed per MD. Amio bolus and gtt started. HR improved. Sustaining in 140s - 150s currently. Per MD call if pt has consistant SBP <90.
[2025-04-10 02:42] LABS: BASOPHILS ABSOLUTE AUTO 0.07 K/mm3 (0.00-0.23); BASOPHILS PERCENT AUTO 1 % (0-2); EOSINOPHILS ABSOLUTE AUTO 0.46 K/mm3 (0.00-0.68); EOSINOPHILS PERCENT AUTO 3 % (0-6); Hematocrit 41.9 % (33.0-51.0); Hemoglobin 12.0 g/dL (11.5-16.0); IMMATURE GRAN ABSOLUTE AUTO 0.04 K/mm3 (0.00-0.10); IMMATURE GRAN PERCENT AUTO 0 % (0-1); LYMPHOCYTES ABSOLUTE AUTO 1.54 K/mm3 (0.84-5.20); LYMPHOCYTES PERCENT AUTO 11 % (21-46); MONOCYTES ABSOLUTE AUTO 1.74 K/mm3 (0.16-1.47); MONOCYTES PERCENT AUTO 13 % (4-13); Mean Corpuscular HGB Conc 28.6 g/dL (31.5-36.5); Mean Corpuscular Volume 88 fL (80-100); NEUTROPHILS ABSOLUTE AUTO 9.93 K/mm3 (1.96-9.15); NEUTROPHILS PERCENT AUTO 72 % (41-73); NRBC ABSOLUTE 0.00 K/mm3 (0.00-0.02); NRBC Auto 0.0 /100 WBC (0.0-0.2); Platelet Count 222 K/mm3 (150-400); RDW Coefficient Variation 17.4 % (11.7-14.2); RDW Standard Deviation 55.7 fL (35.1-46.3)
[2025-04-10 02:55] LABS: Anion Gap 3.0 mmol/L (3-11); Blood Urea Nitrogen 35.0 mg/dL (8-24); CO2, Blood 39.0 mmol/L (21-32); Calcium, Blood 8.1 mg/dL (8.5-10.1); Chloride, Blood 102.0 mmol/L (98-108); Creatinine, Blood 1.07 mg/dL (0.40-1.00); Glucose, Blood 117.0 mg/dL (70-99); Potassium, Blood 4.4 mmol/L (3.5-5.5); Sodium, Blood 140.0 mmol/L (136-145)
--- NOTE | 2025-04-10 05:54 | NUR ---
SHIFT SUMMARY PT remains on Amio gtt at 33 ml/hr per eMAR. BiPAP placed IP/EP:08/04 35% RR:12 PT tolerating without complaint. hypotension and arrhythmia resolved. Patient converted to NSR at approx. 0255 and has maintained a HR in the 60-70s. Much improved, drowsy but arousable and oriented. Pleasant and cooperative.
--- NOTE | 2025-04-10 07:21 | NUR ---
ASSUMPTION OF CARE: REPORT FROM CAMRYN BETANCOURT TO ASSUME CARE OF PT. PT RESTING IN BED AND WAKES UP FOR BEDSIDE REPORT. REMAINS ON BIPAP. AMIO GTT CHANGED TO 16.7. VSS. NOT IN ANY DISTRESS AT THIS TIME.
[2025-04-10] MEDS ORDERED: Albuterol 2.5 MG/3 ML VIAL INH PRN (10:20)
--- NOTE | 2025-04-10 13:50 | NUR ---
UPDATE: THIS RN AT BEDSIDE TO GIVE PT LUNCH. PTTOOK ONE BITE OF HER FOOD AND BEGAN TO COUGH. PT TOOK A DRINK OF WATER TO HELP CLEAR FOOD. AFTER A FEW MINUTES, COUGHING SLOWED DOWN PT TOOK ANOTHER DRINK OF WATER AND BEGAN COUGHING AGAIN. THIS RN TOOK ALL FOOD AND FLUIDS FROM PT AND PROVIDED PT WITH A MOUTH SWABS. PT WAS EDUCATED ABOUT THE CONCERN FOR FOOD ASPIRATIONS AND THAT SHE WILL BE NPO UNTIL SPEECH EVAL. PT UNDERSTANDS AND IS AGREEABLE TO PLAN. PT NOT IN ANY RESPIRATORY DISTRESS AT THIS TIME AND HAS CLEARED AIRWAY. O2 SATS 95% ON 3L NC.
--- NOTE | 2025-04-10 15:58 | NUR ---
Pt. is awake and sitting in a chair. Facilitated an update as this Pt. had been on the Med floor the previous day. Pt. is pleasant and speaks of concerns at home with her family. Listen with empathy and a calming presence. Through theraputic listening the pt. displayed evidence of confidence with an action plan. Pt. verbalized gratitude for the spiritual care visit.
[2025-04-10] MEDS ORDERED: Furosemide 10 MG / ML 2ML Vial IV STA (16:00)
--- NOTE | 2025-04-10 17:37 | NUR ---
SHIFT SUMMARY/ TRANSFER TO PCU 13: PT A&OX4 FOLLOWS COMMANDS AND ANSWERS QUESTIONS APPROPRIATELY. THERE HAVE BEEN NO ACUTE NEURO CHANGES THIS SHIFT. PT HAS BEEN OFF OF BIPAP MOST OF THE DAY AND HAS BEEN TITRATED TO 3L NC. HAS REMAINED FREE OF ANY CP OR PRESSURE. CONTINUES ON AMIO DRIP. HAS HAD OCCASIONAL SOB WITH TIGHTNESS THAT SHE STATES FEELS LIKE HER LUNGS. ROJAS REMAINS IN PLACE AND HAS BEEN DRAINING CLEAR YELLOW URINE. HAS NOT HAD A BOWEL MOVEMENT TODAY. PT WAS TRANSFERED TO PCU 13. REPORT WAS CALLED TO SUNG Farrell RN. PTS BELONGINGS WERE COLLECTED AND TAKEN WITH PT. SUNG Farrell RN TO ASSUME CARE OF PT.
--- NOTE | 2025-04-10 18:23 | NUR ---
PT TRANSFERED TO PCU 13 FROM ICU 08. REPORT RECIEVED FROM GIAL Ga RN. THE PT TX'D VIA RECLINER AND IS A 1P ASSIST. SHE TRANSFERED TO U RECLINER AND IS SITTING UP PLAYING ON HER PHONE. THE PT IS ON AN AMIO GTT AT 16.7 DURING THE TRANSFER. MEDICATION INFUSING IN RAC IV. D/T SOME REDNESS IN THE RAC A SECOND IV WAS STARTED IN LEFT FA. AMIO SWITCHED TO LFA. ON TELE THE PT IS SR 80'S. THIS RN CALLED DR. SULLIVAN TO INQUIRE ABOUT STARTING ORAL AMIO FOR THE MORNING SINCE THE GTT WILL BE FINISHED INFUSING IN THE EVP OPERATIONS. HE WANTED 200MG DAILY STARTED TOMORROW MORNING. THIS RN INQUIRED ABOUT THE L&R HEART CATH, AND DR. SULLIVAN STATED HE IS WAITING UNTIL THE PT IS MORE STABLE. BP NOTED TO BE SOFT BUT STABLE ON THE LEFT ARM. RIGHT ARM BLOOD PRESSURE IMPROVED. PT IS ON 3L NC AND STATED SOB WITH ACTIVITY. SEE NOTES FOR UPDATES.
[2025-04-11 04:01] LABS: BASOPHILS ABSOLUTE AUTO 0.02 K/mm3 (0.00-0.23); BASOPHILS PERCENT AUTO 0 % (0-2); EOSINOPHILS ABSOLUTE AUTO 0.06 K/mm3 (0.00-0.68); EOSINOPHILS PERCENT AUTO 1 % (0-6); Hematocrit 35.8 % (33.0-51.0); Hemoglobin 10.1 g/dL (11.5-16.0); IMMATURE GRAN ABSOLUTE AUTO 0.04 K/mm3 (0.00-0.10); IMMATURE GRAN PERCENT AUTO 0 % (0-1); LYMPHOCYTES ABSOLUTE AUTO 0.73 K/mm3 (0.84-5.20); LYMPHOCYTES PERCENT AUTO 6 % (21-46); MONOCYTES ABSOLUTE AUTO 1.03 K/mm3 (0.16-1.47); MONOCYTES PERCENT AUTO 9 % (4-13); Mean Corpuscular HGB Conc 28.2 g/dL (31.5-36.5); Mean Corpuscular Volume 86 fL (80-100); NEUTROPHILS ABSOLUTE AUTO 10.10 K/mm3 (1.96-9.15); NEUTROPHILS PERCENT AUTO 84 % (41-73); NRBC ABSOLUTE 0.00 K/mm3 (0.00-0.02); NRBC Auto 0.0 /100 WBC (0.0-0.2); Platelet Count 184 K/mm3 (150-400); RDW Coefficient Variation 17.6 % (11.7-14.2); RDW Standard Deviation 55.3 fL (35.1-46.3)
[2025-04-11 04:21] VITALS: BP 102/59
[2025-04-11 04:23] LABS: Alanine Aminotransfer (ALT/SGP 30.0 U/L (12-78); Albumin, Blood 2.4 g/dL (3.4-5.0); Albumin/Globulin Ratio 0.8 (0.8-1.8); Anion Gap 3.0 mmol/L (3-11); Aspartate Aminotrans (AST/SGOT 24.0 U/L (12-37); Bilirubin, Total 1.1 mg/dL (0.1-1.0); Blood Urea Nitrogen 26.0 mg/dL (8-24); CO2, Blood 39.0 mmol/L (21-32); Calcium, Blood 8.1 mg/dL (8.5-10.1); Chloride, Blood 100.0 mmol/L (98-108); Creatinine, Blood 0.79 mg/dL (0.40-1.00); Globulin, Blood 3.2 g/dL (2.2-4.0); Glucose, Blood 160.0 mg/dL (70-99); Potassium, Blood 4.0 mmol/L (3.5-5.5); Sodium, Blood 138.0 mmol/L (136-145); Total Protein, Blood 5.6 g/dL (6.4-8.2)
[2025-04-11 05:13] LABS: pH Blood Arterial 7.32 (7.35-7.45)
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
[2025-04-11 09:00] LABS: pH Blood Venous 7.37 (7.34-7.37)
[2025-04-11 10:57] LABS: pH Blood Venous 7.35 (7.34-7.37)
[2025-04-11 11:33] VITALS: BP 123/65
--- NOTE | 2025-04-11 15:23 | NUR ---
MET WITH PATIENT THIS AFTERNOON. PATIENT IS SITTING UP TO THE CHAIR. SHE IS A/O. DISCUSSED HER UPCOMING PROCEDURE AND HER FEELINGS ON THAT. DISCUSSED SMOKING CESSATION. PATIENT EXPRESSED STRONG BELIEF THAT HER HEART AND LUNGS WILL HEAL. SHE IS VERY ACTIVE AND HOPEFUL THAT SHE WILL BE ABLE TO RESUME HER NORMAL LIFE. SHE REALYED THAT SHE HAD A ROUGH NIGHT AND THAT SHE REMEMBERED A MEMORY FROM HER CHILD ALONZO AND THAT CREATED A LOT OF ANXIETY FOR HER.
[2025-04-11 15:48] VITALS: BP 109/63
--- NOTE | 2025-04-11 17:01 | NUR ---
SHIFT SUMMARY THE PT STARTED THE DAY VERY DROWSY BUT ORIENTED TO SELF, PLACE, PERSON, AND CURRENT EVENTS. SHE WAS HAVING MUMBLED SPEECH AND HAVING DIFFICULTY SAYING ON TRACK WITH CONVERSATION. THIS RN TALKED TO DR. WILLIAMSON ABOUT THE PT REFUSING THE BIPAP IN THE NIGHT AND DISCUSSED THE ABN ABG. DR. WILLIAMSON ROUNDED ON THE PT AND ORDERED BIPAP. VBG DRAWN BEFORE AND ONE HOUR AFTER WEARING THE BIPAP. DR. HAYWARD SAW THE PT AND STATED THAT SHE NEEDS TO BE WEARING THE BIPAP WHEN SHE IS NAPPING AND WHEN SHE IS ASLEEP. SAW THE PT AND PLAN FOR L&R CARDIAC CATH TOMORROW. SP02 >93% AND RESP RATE HAS BEEN 20'S-30'S. ON TELE SHE HAS REMAINED SR 60'S80'S. ANXIETY MEDICATIONS STARTED TODAY PER DR. WILLIAMSON. THE PT'S SISTER CAME TO BEDSIDE AND WAS UPDATED ON CARE. SEE NOTES FOR UPDATES.
[2025-04-11 19:27] VITALS: BP 108/56
[2025-04-11 23:54] VITALS: BP 130/71
[2025-04-12] VITALS (47 sets, daily range): BP systolic 50–120; BP diastolic 33–75
--- NOTE | 2025-04-12 05:21 | NUR ---
SHIFT SUMMARY PT ALERT, ORIENTED X3-4. PT HAS MUMMBLED SPEECH BUT ANSWERS APPROPRIATELY. HR IN THE 70'S , SINUS RHYTHM. DENIES CP/PRESSURE, NUMB/TINGLING, SBP STABLE. PT ON 2L VIA NC WHILE AWAKE, AND PLACED ON BIPAP FOR SLEEP. PT ANXIOUS WITH BIPAP AND NEEDED FREQUENT QUICK BREAKS T/O NIGHT. SPO2 AT 100% AT THIS TIME. PT HAS ROJAS IN PLACE, SHE DENIES ANY PAIN AT SITE. STAT LOCKD CHANGED THIS SHIFT. URINE A RED/ORANGE COLOR. PT HAS BEEN NPO SINCE 0000 FOR PROCEDURE THIS AM. SHE IS RESTING IN BED AT THIS TIME, CALL LIGHT IN REACH. WILL MONITOR PT AND REPORT TO ONCOMING RN.
[2025-04-12 05:22] LABS: BASOPHILS ABSOLUTE AUTO 0.04 K/mm3 (0.00-0.23); BASOPHILS PERCENT AUTO 0 % (0-2); EOSINOPHILS ABSOLUTE AUTO 0.33 K/mm3 (0.00-0.68); EOSINOPHILS PERCENT AUTO 3 % (0-6); Hematocrit 36.4 % (33.0-51.0); Hemoglobin 10.6 g/dL (11.5-16.0); IMMATURE GRAN ABSOLUTE AUTO 0.03 K/mm3 (0.00-0.10); IMMATURE GRAN PERCENT AUTO 0 % (0-1); LYMPHOCYTES ABSOLUTE AUTO 1.25 K/mm3 (0.84-5.20); LYMPHOCYTES PERCENT AUTO 12 % (21-46); MONOCYTES ABSOLUTE AUTO 1.10 K/mm3 (0.16-1.47); MONOCYTES PERCENT AUTO 11 % (4-13); Mean Corpuscular HGB Conc 29.1 g/dL (31.5-36.5); Mean Corpuscular Volume 87 fL (80-100); NEUTROPHILS ABSOLUTE AUTO 7.46 K/mm3 (1.96-9.15); NEUTROPHILS PERCENT AUTO 73 % (41-73); NRBC ABSOLUTE 0.00 K/mm3 (0.00-0.02); NRBC Auto 0.0 /100 WBC (0.0-0.2); Platelet Count 190 K/mm3 (150-400); RDW Coefficient Variation 18.0 % (11.7-14.2); RDW Standard Deviation 56.3 fL (35.1-46.3)
[2025-04-12 05:49] LABS: Alanine Aminotransfer (ALT/SGP 27.0 U/L (12-78); Albumin, Blood 2.3 g/dL (3.4-5.0); Albumin/Globulin Ratio 0.7 (0.8-1.8); Anion Gap 3.0 mmol/L (3-11); Aspartate Aminotrans (AST/SGOT 23.0 U/L (12-37); Bilirubin, Total 0.9 mg/dL (0.1-1.0); Blood Urea Nitrogen 24.0 mg/dL (8-24); CO2, Blood 40.0 mmol/L (21-32); Calcium, Blood 8.3 mg/dL (8.5-10.1); Chloride, Blood 99.0 mmol/L (98-108); Creatinine, Blood 0.76 mg/dL (0.40-1.00); Globulin, Blood 3.1 g/dL (2.2-4.0); Glucose, Blood 97.0 mg/dL (70-99); Potassium, Blood 3.9 mmol/L (3.5-5.5); Sodium, Blood 138.0 mmol/L (136-145); Total Protein, Blood 5.4 g/dL (6.4-8.2)
[2025-04-12] MEDS ORDERED: Nitroglycerin 2 MG/20 ML BTL ONE (06:55)
[2025-04-12] MEDS ORDERED: NS 1,000 ML IV ONE ×2 (06:55→06:56)
[2025-04-12] MEDS ORDERED: Verapamil HCL 2.5 MG/ML 2ML Injection ONE (06:55)
[2025-04-12] MEDS ORDERED: NS 250 ML IV ONE ×2 (06:55→10:25)
[2025-04-12] MEDS ORDERED: Heparin Sodium 1000 Units/ML 10ML MDV ONE ×2 (06:55→06:56)
[2025-04-12] MEDS ORDERED: Phenylephrine HCl 100 MCG/ML-NS 10MLSYR (1MG/10ML) ONE (07:44)
--- NOTE | 2025-04-12 10:37 | NUR ---
AT THE START OF THE SHIFT ABOUT 0708 THE [facility] CALLED TO TAKE THE PT DOWN TO THE WHOLESALE PARTS SALESPERSON FOR AN ANGIOGRAM. VS WERE OBTAINED BEFORE PT LEFT. PT CAME BACK FROM THE WHOLESALE PARTS SALESPERSON ABOUT 0855. IT WAS REPORTED THAT THE PT WAS HYPOTENSIVE IN THE WHOLESALE PARTS SALESPERSON AND THEY WERE USING ARTERIAL PRESSURE MONITORING TO CONFIRM HYPOTENSION. THE PT CONTINUES TO BE HYPOTENSIVE SINCE COMING BACK TO THE ROOM. PT HAS BEEN ONLY C/O HEADACHE AND BEING SLEEPY. DR. WILLIAMSON ORDERED 5MG [address]INE [address] DR. HOFFMAN ORDERED 250CC BOLUS. BOLUS INFUSING AT THIS TIME. THE PT IS CURENTLY LAYING SUPINE TRYING TO TAKE A NAP WITH THE BIPAP ON BIPAP ON AT 12/6 @ 30%. HER RESP RATE IS RANGING FROM 29-35 ON THE BIPAP. WHEN AWAKE SHE IS WEARING 3-5L NC. SHE HAS RIGHT RADIAL ACCESS WITH 10CC'S OF AIR IN THE TR BAND. ARMBOARD IN PLACE. SITE WITHOUT ANY BLEEDING/HEMATOMA/OR PAIN. THE PT'S DISTAL CAP REFILL IS >3 SEC, WHICH IS NOT NEW FOR HER. THE PT DOES DENY ANY WORSENING N/T IN FINGERS. VITAL SIGNS Q15 D/T BP, ALSO, THIS RN SPOKE WITH DR. HOFFMAN ABOUT HOLDING THE METOPROLOL, LASIX, AND ELIQUIS D/T HYPOTENSION, AND INCREASED BLOOD IN THE PT'S ROJAS. WE WILL REEVALUATE THE LASIX THIS AFTERNOON. DR. BURLESON MADE AWARE OF THE CONVERSATION WITH DR. HOFFMAN. SEE NOTE FOR UPDATES.
--- NOTE | 2025-04-12 12:20 | NUR ---
PT TO ICU 08 VIA BED, ESCORTED BY PCU STAFF. ON BIPAP c SETTINGS OF 12/6 AND 30%. O2 SATURATION > 92%. PT ALERT AND ORIENTED X 4.
--- NOTE | 2025-04-12 12:27 | NUR ---
UPDATE FROM PREVIOUS NOTE POST 250CC BOLUS AND 5MG MIDODRINE, THE PT'S HYPOTENSION CONTINUED AND SHE STARTED DEVELOPING DYSPNEA AND INCREASE TACHYPEANIA. SHE WAS TRYINIG TO RIP OFF THE BIPAP D/T DYSPNEA AND ANXIETY. ANXIETY MEDICATIONS PROVIDED PER EMAR. PT COACHED THROUGH HER ANXIETY AND EDUCATED NEED FOR THE BIPAP. RESP RATE 20'S-40'S. ALSO, DURING THIS EVENT SHE STARTED TO REPORT BLURRY VISION FROM HER RIGHT EYE. THE PT REPORTS THIS TO BE NEW. THIS RN CALLED DR. WILLIAMSON ABOUT THE INFORMATION LISTED. DR. WILLIAMSON ORDERED ANOTHER 5MG MIDODRINE AND A STAT 1V CX. DR. WILLIAMSON AND DR. HOFFMAN CAME TO THE UNIT AND SAW THE PT. THEY DISCUSSED PLAN OF CARE FOR THE PT. ICU TRANSFER WAS ORDERED DURING THEIR CONVERSATION. DR. WILLIAMSON LEFT THE UNIT TO SPEAK WITH THE CONSULTED PULM DR. HAYWARD. THE PT'S SISTER CHARLES WAS AT BEDSIDE AND UPDATED ON CARE AND TX TO ICU BY DR. HOFFMAN. ABOUT 1100 THE TRBAND HAD 2CC'S OF AIR DEFLATED AND A SMALL HEMATOMA STARTED TO DEVELOP PROXIMAL TO THE ANGIOSITE. 2CC OF AIR REINFLATED AND MANNUAL PRESSURE HELD. THE PT TRANSFERED TO [facility] 08 ABOUT 1210 AND REPORT WAS GIVEN TO CINDI BETANCOURT. ALL BELONGINGS INCLUDING FULL SET OF DENTURES, PHONE, PHONE VOCATIONAL ED INSTRUCTOR, AND CLOTHES WERE SENT WITH THE PT.
--- NOTE | 2025-04-12 12:49 | NUR ---
PT TO ICU ROOM 8, ESCORTED BY SHOE REPAIRER APPRENTICE'S. ON BIPAP c SETTINGS OF 12/6 AND 30%, O2 SATURATION > 92%. PT ALERT AND ORIENTED X 4. CONTINUOUS CARDIAC MONITORING IN PLACE. ROJAS PATENT AND DRAINING RED URINE TO GRAVITY. SKIN INTACT. TR BAND TO R RADIAL FULLY INFLATED, NO BLEEDING/HEMATOMA. SEE SHIFT ASSESSMENT FOR FULL DETAILS.
--- NOTE | 2025-04-12 13:43 | NUR ---
Spiritual Care Visit. Soon after she was moved to ICU this survey research manager came to bedside. Though Pt. was on BiPap, she welcomed my visit with bright eyes. Communciation is limited, but Pt. welcomed prayer and grabbed my hand. Prayed with Pt. Pt. verbalized gratitude for the spiritual care visit. Will remain available.
--- NOTE | 2025-04-12 16:02 | NUR ---
MET WITH NICK. SHE HAS BEEN TRANSFERED TO ICU AND PLACED ON BIPAP. PATIENT RELAYED THAT THE DOCTOR HAD RETURN AGENT AIRPORT HER THE OPTIONS OF HOSPICE OR CURATIVE CARE. PATIENT EXPRESSED THAT SHE WANTED TO GO HOME AND BE WITH HER DOGS. I ASKED HER IF SHE UNDERSTOOD THAT THE CHOICE IS HOSPICE, SHE EXPRESSED THAT SHE UNDERSTOOD. DISCUSSED CODE STATUS. PATIENT WANTED TO BE A DNR. CALLED PROVIDER AND CODE STATUS CHANGED. CALLED PATIENTS SISTER. PROVIDED THERAPUTIC CONVERSATION SHE RELAYED THEIR HISTORY. SISTER IS UNDERSTANDING OF PTS DECISON AND SUPPORTATIVE OF HER WISHES. SHE WOULD PREFER [facility] COME TO [place] TO LIVE CLOSER TO HER AND HER DAUGHTER, BUT UNDERSTANDS THAT SHE WANTS TO BE IN HER HOME. DISCUSSED CASE WITH FISH TECHNOLOGIST AND UPDATED ABOUT PATIENTS WISHES.
--- NOTE | 2025-04-12 18:18 | NUR ---
NOAH-SYNEPHRINE IV SPOKE WITH DR. HAYWARD RE: PIV'S NO LONGER DRAWING BACK BLOOD. DISCUSSED WITH PATIENT THAT WE MAY NEED TO START ANOTHER IV FOR THIS MEDICATION AND SHE BECAME ANXIOUS AND TEARFUL STATING "I HAVE NO OTHER IV'S TO GIVE YOU". PER DR. HAYWARD, OKAY TO CONTINUE MEDICATION THROUGH THESE IV'S AND TO MONITOR THE SITES CLOSELY. VERBAL TO START MIDODRINE ALSO, WILL PLACE ORDER AND CONTINUE TO MONITOR.
[2025-04-13] VITALS (42 sets, daily range): BP systolic 43–148; BP diastolic 16–129
--- NOTE | 2025-04-13 06:33 | NUR ---
SHIFT SUMMARY: PT HASN'T EXPERIENCED CHANGES OVERNIGHT. SHE REMAINS ON NOAH-SYNEPHRINE GTT TO MAINTAIN ADEQUATE BP. HR HAS BEEN IN THE 60'S IN A NORMAL SINUS RHYTHM. PT HAS BEEN ON 4LPM NC. SHE DOES APPEAR DYSPNEIC AT BASELINE, BUT DENIES FEELING SOB. SHE IS MOVING AROUND WELL INDEPENDENTLY. ROJAS REMAINS IN PLACE CURRENTLY IT WAS PLACED FOR RETENTION, BUT SHE IS GETTING UP TO THE TOILET NOW. PERIPHERAL IVS HAVE REMAINED PATENT WITHOUT EVIDENCE OF REDNESS OR TENDERNESS. PT HAS NOT BEEN TEARFUL OR ANXIOUS TONIGHT. SEEMS TO BE COPING WELL.
--- NOTE | 2025-04-13 09:41 | NUR ---
AM NOTE: THIS RN ASSUMED CARE OF PT AT APPROX 0700, BEDSIDE REPORT FROM NOC RN. PT A/OX4, ABLE TO COMMUNICATE NEEDS & PARTICIPATE IN CARE. HR 60-80'S, SINUS RHYTHM ON MONITOR. SBP 70-80'S, PHENYLEPHRINE INFUSING; RATE TITRATED FROM 65 MCG/MIN TO 30 MCG/MIN PER DR. HAYWARD W/ PLANS FOR DISCHARGE HOME ON HOSPICE LATER TODAY. SPO2 >90% ON 3L VIA NC. AFEBRILE. C/O HEADACHE THIS AM, MEDICATED W/ TYLENOL PER EMAR. PT ABLE TO EAT BREAKFAST THIS AM INDEPENDENTLY, ASSISTED W/ REPOSITIONING IN BED NEEDED. PT IS SLEEPING AT THIS TIME, CALL LIGHT IN REACH.
--- NOTE | 2025-04-13 12:37 | NUR ---
UPDATE: THIS RN AT PT'S BEDSIDE DISCUSSING DISCHARGE PLANS & ADMISSION TO HOSPICE. PT STATES THAT SHE BELIEVES SHE IS GOING TO [place] WITH HER SISTER FOLLOWING DISCHARGE & THAT OXYGEN HAS BEEN DELIVERED TO HER HOUSE. PT THEN STATES THAT SHE DOES NOT WANT TO GO TO [place] & WISHES TO BE HOME WITH HER DOGS. PT ADVISED THAT HOSPICE ADMITTING NURSE WILL NOT BE OUT TO HER HOUSE UNTIL TUESDAY, PT STATES "THAT WON'T WORK." CALL PLACED TO PT'S SISTER, LORETTA. LORETTA STATES THAT THE PT WAS ADAMENT ABOUT NOT GOING TO [place] STATING THAT SHE "WANTS TO ALONE IN HER OWN HOUSE." ALL HOSPICE ARRANGEMENTS WERE MADE FOR PT TO STAY LOCAL. 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 LORETTA IS CONCERNED THAT THE PT WILL NOT HAVE A FULL-TIME CAREGIVER & THAT ONLY HAVING THE HOSPICE NURSE WILL NOT BE ENOUGH. ADDITIONALLY, THIS RN HAS ATTEMPTED TO TITRATE PHENYLEPHRINE DOWN PER MD ORDERS IN ATTEMPT TO TITRATE COMPLETELY OFF FOR DISCHARGE. PT'S SBP DROPPED TO 50'S WHILE STILL ON 15 MCG/MIN. CALL PLACED TO DR. BURLESON & PALLIATIVE CARE RN. PALLIATIVE CARE RN TO BEDSIDE - SEE PC NOTES. PLAN AT THIS TIME IS TO TRANSITION TO COMFORT CARE INPATIENT ONCE PT'S FAMILY BRINGS HER DOGS IN TO VISIT HER. WILL REMAIN ON PRESSORS UNTIL THAT TIME.
[2025-04-13] MEDS ORDERED: Lidocaine 4% 1 Patch TOP SCH (12:45)
--- NOTE | 2025-04-13 12:48 | NUR ---
PALLIATIVE CARE VISIT: MET WITH PT AND SPOKE TO DAUGHTER CALDERON AND SISTER LORETTA OVER THE PHONE ABOUT CONCERNS PT WAS UNABLE TO TITRATE OFF PRESSORS DESPITE ORAL MIDODRINE. PT STATES SHE NO LONGER WANTS TO BE OB IV MEDICATIONS FOR HER BP. SHE WOULD BE OKAY WITH COMFORT CARE IN THE HOSPITAL AT THIS TIME. SHE WOULD APPRECIATE SOME TIME TO VISIT WITH HER DOGS AND VISIT WITH HER DAUGHTER AND SISTER PRIOR TO PRESSORS BEING DISCONTINUED HOWEVER. WE DISCUSSED OVER THE PHONE TOGETHER AND ALL PARTIES ARE IN AGREEMENT WITH THE PLAN TO PLACE ON COMFORT CARE AFTER VISITS HAVE BEEN MADE. PT WOULD APPRECIATE PAIN MANAGEMENT AND DESCRIBES PAIN TO L SIDE OF HER MIDDLE BACK AREA SHARP AND STABBING. SHE DOES HAVE SWELLING IN THE AREA. SHE UNDERSTANDS NARCOTICS CAN MAKE HER DROWSY AND WORSEN HER BP SO SHE IS WILLING TO TRY A LIDOCAINE PATCH AND IBUPROFEN OR TYLENOL UNTIL SHE IS READY TO STOP PRESSORS. CALLED DR. BURLESON AND HE IS AGREEABLE TO ABOVE POC. ORDERS RECEIVED FOR IBUPROFEN AND LIDOCAINE PATCH. ORDERS PLACED. UPDATED PRIMARY RN.
--- NOTE | 2025-04-13 14:51 | NUR ---
COMFORT CARE: PT'S DAUGHTER & SISTER AT BEDSIDE. PT REQUESTING TRANSITION TO COMFORT CARE AT THIS TIME. DR. BURLESON NOTIFIED, WILL PLACE CC ORDERS.
[2025-04-13] MEDS ORDERED: Atropine Sulfate 1% Opth Soln 2ML BTL SL PRN (14:55)
[2025-04-13] MEDS ORDERED: Morphine Sulfate 20 MG/1ML 1 ML Oral Syringe SL PRN (14:55)
[2025-04-13] MEDS ORDERED: Ondansetron HCl 2 MG / ML 2ML Vial IV PRN (15:00)
--- NOTE | 2025-04-13 17:55 | NUR ---
END OF SHIFT NOTE: SEE PREVIOUS NOTES REGARDING UPDATES THIS SHIFT. PT ON COMFORT CARE AT THIS TIME W/ FAMILY AT BEDSIDE. CALL LIGHT IN REACH.
--- NOTE | 2025-04-13 20:48 | NUR ---
PT WAS GIVEN BED BATH AND CHANGED GOWNS. DENTURES IN LABELED CUP WITH CLEANING SOLUTION. SHE IS EATING ICE CREAM. BREATHING APPEARS A LITTLE LABORED, THOUGH SHE HAS NO COMPLAINT. SHE IS ON 4LPM NC AND BEING MEDICATED PER COMFORT CARE ORDERS. FAMILY IS CURRENTLY AT BEDSIDE AND PATIENT IS IN RECLINER CHAIR. REPORT WAS GIVEN TO ASIA ANTONIO FOR TRANSFER TO [facility].
--- NOTE | 2025-04-13 23:08 | NUR ---
@2044 REPORT RECEIVED FROM THE ICU NURSE GABINO @2622 PT ARRIVED TO THE MEDICAL FLOOR. PT BROUGHT ALL HER BELONINGS WITH HER. PT'S SITER AND NEICE BY THE BEDSIDE. EDUCATED PING PONG TABLE ASSEMBLER LIGHT USE AND FALL PRECAUTIONS. BED AT THE LOWEST POSITION, CALL LIGHT W/I REACH. PT IS A/O X4, ABLE TO MAKE HER NEEDS KNOWN.
--- NOTE | 2025-04-14 07:30 | NUR ---
PT RESTING, WILL AWAKEN TO TOUCH, BUT NOT RESPONDING BEYOND MUMBLES. INCOHERANT. OPENS EYES SOME THEN SHUTS AGAIN. RESTING QUIETLY. CLEAN AND DRY. HANDS COLD, HERNANDEZ. ON 4L O2. IS ON COMFORT CARE. BED IN LOW POSITION, CALLLITE IN REACH, BED ALARM ON FOR SAFETY
--- NOTE | 2025-04-14 10:08 | NUR ---
PT SQUIRMING IN BED, MOANING LIGHTLY. REPOSITIONED, CLEAN AND DRY. MMEGAN, PALIATIVE CARE IN ROOM. PLACED PAIN PATCH MID LEFT BACK. ADMIN 10 MG ROXANOL. PT DID NOT AWAKEN. WANDER SELLERS WILL CALL FAMILY
--- NOTE | 2025-04-14 10:42 | NUR ---
RESP EASY, UNLABORED AT THIS TIME. QUIET, NOT SQUIRMING. NOT RESPONDING TO VERBAL DISCUSSION
--- NOTE | 2025-04-14 12:11 | NUR ---
DAUGHTER IN ROOM. CALLED ME TO ROOM. STATES SHE BREATHING HARDER - WORKING. BARELY RESPONDING TO DISCUSSION. MED PER EMAR. BED IN LOW POSITION, CALL LITE IN REACH, CALLS BED ALARM ON FOR SAFETY,
--- NOTE | 2025-04-14 18:24 | NUR ---
PT SLEPT HARD THIS AM, ALMOST NOT ABLE TO AWAKEN. JUST ENOUGH TO OPEN EYES AND GO BACK TO SLEEP. DID AWAKEN THIS AFT. ATE SOME APPLESAUCE AND SHERBET. FAMILY IN ROOM AT THIS TIME. PT DID TALK SOME, VISIT SOME , MED PER HER REQUEST FOR ANX AND PAIN. NO OTHER NEW CONCERNS NOTED. BED IN LOW POSITIOIN, CALL LITE IN REACH, BED ALARM ON FOR SAFETY
--- NOTE | 2025-04-15 03:01 | NUR ---
SHIFT SUMMARY/COMFORT CARE NOTE NO ACUTE EVENTS DURING THIS SHIFT. SISTER AND DAUGHTER BY THE BEDSIDE T/O THE NIGHT. MEDICATED WITH 2MG ATIVAN PO D/T AGITATION AT HS. MEDICATED WITH ROXYCODONE ONCE DURING THE NIGHT HRS. 4L O2 VIA NASAL CANNULA FOR COMFORT. REPOSITIONED. PT IS DROSY, RESPONDS TO VERBAL STIMULI AND PAIN. SOME VOCALIZATION WHEN AWAKEN. BED AT THE LOWEST POSITION, CALL LIGHT WITHIN REACH. FAMILY IS ONBOARD WITH THE CARE, PLEASANT. HOB ELEVATED.
--- NOTE | 2025-04-15 18:07 | NUR ---
PATIENT ON COMFORT CARE, FAMILY AT BEDSIDE FOR MOST OF THE SHIFT. MEDICATING WITH ROXANOL AND ATIVAN. ROJAS TO GRAVITY, MINIMAL OUPUT. NO NEW CONCERNS THIS SHIFT. PATEINT COMFORTABLE AND FAMILY SUPPORTIVE.
--- NOTE | 2025-04-15 20:41 | NUR ---
PT @2005. VERIFIED BY CHARGE NURSE SHAQUILLE Krishnan SISTER AND DAUGHTER IN THE ROOM. AWAITING FOR CHUCK WAGON COOK TO ARRIVE.
--- NOTE | 2025-04-15 22:10 | NUR ---
Pastoral care visitation conducted. Daughter and sister were at the decedent's bedside. They both reminisced and reflected upon the patient's life and relational dynamic. Opportunity for reflection extended as they both proceeded to share congruently. Empathic listening and consolatory feedback provided. Family requested prayer which was readily given. Family remained in the room and were readying to depart.
== END 2025-04-15 20:06 | DRG 286 ==
LOC: ER 21:45 → MEDS 21:46 → ICUE 04-09 23:31 → PCU 04-10 17:25 → ICUE 04-12 12:18 → MEDS 04-13 21:50
PROVIDERS: Emergency Medicine; Family Medicine; Internal Medicine; Internal Medicine Critical Care Medicine; Student in an Organized Health Care Education/Training Program; ADMIT Student in an Organized Health Care Education/Training Program
PROC: 3E033XZ Introduction of Vasopressor into Peripheral Vein, Percutaneous Approach (ICD-10-PCS; 2025-04-09)
PROC: 5A09457 Assistance with Respiratory Ventilation, 24-96 Consecutive Hours, Continuous Positive Airway Pressure (ICD-10-PCS; 2025-04-10)
PROC: 0T9B70Z Drainage of Bladder with Drainage Device, Via Natural or Artificial Opening (ICD-10-PCS; 2025-04-10)
PROC: 4A033R1 Measurement of Arterial Saturation, Peripheral, Percutaneous Approach (ICD-10-PCS; 2025-04-11)
PROC: 4A023N8 Measurement of Cardiac Sampling and Pressure, Bilateral, Percutaneous Approach (ICD-10-PCS; principal; 2025-04-12)
PROC: B2111ZZ Fluoroscopy of Multiple Coronary Arteries using Low Osmolar Contrast (ICD-10-PCS; 2025-04-12)
DX: I27.20 Pulmonary hypertension, unspecified (principal); I50.31 Acute diastolic (congestive) heart failure; I82.0 Budd-Chiari syndrome; J96.21 Acute and chronic respiratory failure with hypoxia; J96.22 Acute and chronic respiratory failure with hypercapnia; I13.0 Hypertensive heart and chronic kidney disease with heart failure and stage 1 through stage 4 chronic kidney disease, or unspecified chronic kidney disease; D68.59 Other primary thrombophilia; R64 Cachexia; Z68.1 Body mass index [BMI] 19.9 or less, adult; L97.919 Non-pressure chronic ulcer of unspecified part of right lower leg with unspecified severity; I48.92 Unspecified atrial flutter; N17.9 Acute kidney failure, unspecified; R57.9 Shock, unspecified; Z66 Do not resuscitate; Z51.5 Encounter for palliative care; Z60.2 Problems related to living alone; K21.9 Gastro-esophageal reflux disease without esophagitis; E78.5 Hyperlipidemia, unspecified; G25.81 Restless legs syndrome; E86.0 Dehydration; R19.7 Diarrhea, unspecified; I08.1 Rheumatic disorders of both mitral and tricuspid valves; E87.5 Hyperkalemia; I48.0 Paroxysmal atrial fibrillation; D50.9 Iron deficiency anemia, unspecified; N18.30 Chronic kidney disease, stage 3 unspecified; F25.0 Schizoaffective disorder, bipolar type; I50.813 Acute on chronic right heart failure; F17.210 Nicotine dependence, cigarettes, uncomplicated; I25.10 Atherosclerotic heart disease of native coronary artery without angina pectoris; I27.81 Cor pulmonale (chronic); J43.9 Emphysema, unspecified; K70.31 Alcoholic cirrhosis of liver with ascites; Z79.01 Long term (current) use of anticoagulants; Z79.51 Long term (current) use of inhaled steroids; Z79.899 Other long term (current) drug therapy; Z98.890 Other specified postprocedural states; Z90.89 Acquired absence of other organs; Z90.49 Acquired absence of other specified parts of digestive tract; Z88.5 Allergy status to narcotic agent
CPT/HCPCS: 36415; 36600; 51702; 71045; 71260; 76937; 80048; 80053; 82728; 82803; 82947; 83540; 83550; 83605; 83690; 83735; 83880; 84132; 84145; 84484; 85025; 85379; 86140; 92526; 92610; 93005; 93010; 93308; 93460; 94640; 94660; 94664; 94760; 94762; 96360; 96361; 96372; 96374; 99285-25; A9270; C1769; C1887; C1894; G0378; J0282; J1171; J1644; J1938; J2371; J2919; J7030; J7050; Q9967